=== PATIENT | female | born 1965 | race Caucasian/White ===

== ENCOUNTER 2021-10-27 14:38 | Emergency (ER) | payer OTHER ==
[~2021-10-27] VITALS: Ht 162.6 cm; Wt 88.0 kg
[2021-10-27] MEDS ORDERED: LOSARTAN POTASS25 MG PO (14:53)
[2021-10-27] MEDS ORDERED: CITALOPRAM20 MG/10 M PO (14:53)
== END 2021-10-27 15:50 | disposition home or self-care (01) ==
LOC: ER 14:38
DX: S60.416A Abrasion of right little finger, initial encounter (principal); W45.8XXA Other foreign body or object entering through skin, initial encounter; Y93.89 Activity, other specified; Y92.89 Other specified places as the place of occurrence of the external cause; Z88.0 Allergy status to penicillin